=== PATIENT | male | born 1995 ===

== ENCOUNTER 2018-09-27 11:14 | Emergency (ER) | payer BC ==
--- NOTE | 2018-09-27 12:16 | UC ---
Skin Complaint HPI - HPI Summary HPI Summary: Pt states his girlfriend had a yeast infection and he thinks he got thrush from her. He had thrush one time in the past. He has no immunocompromising condition and has had a negative HIV test in the past. He is sexually active with one partner who is sexually active just with him. He states in the past he had some redness to his penis with swelling from thrush. He states yesterday he had some inflammation and applied anti-fungal cream which improved the redness. No hx of STD - History of Current Complaint Chief Complaint: UCGeneralIllness Time Seen by Provider: 09/27/18 11:50 Stated Complaint: POSSIBLE THRUSH Hx Obtained From: Patient Onset/Duration: Gradual Onset Skin Exposure Onset/Duration: Days Ago - 2-3 days noticed a white film on his tongue and in his mouth. Onset Severity: Moderate Current Severity: Mild Pain Intensity: 2 Location: Other - Mouth, buccal mucosa Character: Redness Aggravating Factor(s): Nothing Alleviating Factor(s): OTC Meds - Applied OTC antifungal to penis which improved those symptoms Associated Signs & Symptoms: Positive: Negative Related History: Other: - Exposed to girlfriend who had a yeast infection Similar Episode/Dx as: Thrush - Allergy/Home Medications Allergies/Adverse Reactions: Allergies Allergy/AdvReac Type Severity Reaction Status Date / Time No Known Allergies Allergy Verified 09/27/18 11:37 PMH/Surg Hx/FS Hx/Imm Hx Previously Healthy: Yes - Surgical History Surgical History: None - Social History Occupation: Student Lives: Dormitory/Roommates Alcohol Use: Occasionally Substance Use Type: None Smoking Status (MU): Never Smoked Tobacco Review of Systems All Other Systems Reviewed And Are Negative: Yes Constitutional: Positive: Negative Skin: Positive: Rash - Minimal redness and skin irritation to penis, uncircumcised ENT: Positive: Other - White film to tongue, nothing on the buccal mucosa, mild inflamation posterior pharynx Respiratory: Positive: Negative Cardiovascular: Positive: Negative Gastrointestinal: Positive: Negative Genitourinary: Positive: Vaginal/Penile Pain - Minimal penile burning and mild redness.. Negative: Vaginal/Penile Discharge Motor: Positive: Negative Neurovascular: Positive: Negative Musculoskeletal: Positive: Negative Neurological: Positive: Negative Psychological: Positive: Negative Is Patient Immunocompromised?: No Physical Exam Triage Information Reviewed: Yes Appearance: Well-Appearing, No Pain Distress, Well-Nourished Vital Signs: Initial Vital Signs Temp 98.7 F 09/27/18 11:34 Pulse 96 09/27/18 11:34 Resp 17 09/27/18 11:34 BP 143/86 09/27/18 11:34 Pulse Ox 100 09/27/18 11:34 Vital Signs Reviewed: Yes Eye Exam: Normal ENT: Positive: Other - White film to tongue, nothing on the buccal mucosa, mild inflamation posterior pharynx Neck exam: Normal Neck: Positive: Supple, Nontender, No Lymphadenopathy Respiratory Exam: Normal Cardiovascular Exam: Normal Abdominal Exam: Normal Bowel Sounds: Positive: Present Male Genital Exam: Positive: Normal Genitalia, Other - Very minimal erythema glans without drainage or discharge, non-tender Musculoskeletal Exam: Normal Neurological Exam: Normal Psychological Exam: Normal Skin Exam: Normal Course/Dx - Course Course Of Treatment: Comfortable here, pt prefers fluconazole as opposed to Nystatin. - Diagnoses Provider Diagnosis: Thrush, oral Discharge - Sign-Out/Discharge Documenting (check all that apply): Patient Departure All imaging exams completed and their final reports reviewed: No Studies - Discharge Plan Condition: Good Disposition: HOME Prescriptions: Fluconazole [Fluconazole 200 mg tab] 200 mg PO ONCE #1 tab Fluconazole 100 MG TAB* [Diflucan 100 MG TAB*] 100 mg PO DAILY 13 Days #13 tab Patient Education Materials: Oral Candidiasis (ED) Referrals: No Primary Care Phys,NOPCP [Primary Care Provider] - Additional Instructions: No intercourse until cleared. Take the Fluconazole 200mg today then 100 mg daily for 13 days. Definite follow up at the [facility]– [place] in 3-4 days if no improvement. - Billing Disposition and Condition Condition: GOOD Disposition: Home
== END 2018-09-27 12:31 | disposition home or self-care (01) ==
LOC: UCEAST 11:14
DX: B37.0 Candidal stomatitis (principal)
CPT/HCPCS: 99202; G0463